=== PATIENT | female | born 1935 | race Caucasian/White ===

== ENCOUNTER → 2016-10-14 | Outpatient (CLI) | payer OTHER | LOC: RAD 14:37 | DX: S32.592A Other specified fracture of left pubis, initial encounter for closed fracture (principal) ==

== ENCOUNTER → 2017-09-30 | Outpatient (CLI) | payer OTHER | LOC: RAD 09:07 | DX: S22.41XA Multiple fractures of ribs, right side, initial encounter for closed fracture (principal); R07.89 Other chest pain; Z88.2 Allergy status to sulfonamides; X58.XXXA Exposure to other specified factors, initial encounter; Y93.89 Activity, other specified; Y92.89 Other specified places as the place of occurrence of the external cause; Y99.8 Other external cause status ==

== ENCOUNTER → 2019-05-11 | Outpatient (CLI) | payer OTHER | LOC: NUC 10:37 | DX: M81.0 Age-related osteoporosis without current pathological fracture (principal); M85.89 Other specified disorders of bone density and structure, multiple sites; Z78.0 Asymptomatic menopausal state ==